=== PATIENT | male | born 1995 | race Caucasian/White ===

== ENCOUNTER 2017-09-07 07:15 | Emergency (ER) | payer OTHER ==
[~2017-09-07] VITALS: Ht 182.9 cm; Wt 84.5 kg
[2017-09-07 07:20] VITALS: TEMP 37; Ht 182.9 cm; Wt 84.5 kg
--- NOTE | 2017-09-07 08:15 | DIAGNOSTIC IMAGING REPORT ---
CHEST 2 VIEWS ROUTINE CLINICAL HISTORY: 21 years-old Male presenting with COUGH CONGESTION X 2 DAYS. TECHNIQUE: PA and lateral views of the chest were obtained. COMPARISON: None. FINDINGS: Cardiomediastinal silhouette normal. Consolidation along the left upper lobe/lingula best visualized on the lateral view. No pleural effusion or pneumothorax. Osseous structures normal. Upper abdomen normal. IMPRESSION: 1. Consolidation in the left upper lobe/lingula consistent with pneumonia. Electronically signed by: Chris Jarquin M.D. 09/07/2017 8:14 AM Dictated Date/Time: 09/07/2017 8:10 AM
[2017-09-07] MEDS ORDERED: AZITHROMYCIN 250 MG TAB PO ONE (08:30)
[2017-09-07] MEDS ORDERED: ALBUTEROL HFA 8 GM INHALER INH ONE (08:30)
[2017-09-07] MEDS ORDERED: AZIT250T5 PO (08:36)
[2017-09-07] MEDS ORDERED: HYDR5SYP11 PO (08:36)
--- NOTE | 2017-09-07 08:38 | EMERGENCY ROOM VISIT NOTE ---
ED Visit Note First contact with patient: 07:22 CHIEF COMPLAINT: Cough 3 days HISTORY OF PRESENT ILLNESS: Patient is an otherwise healthy 21-year-old white male who presents to emergency department for evaluation of a cough and shortness of breath 2-3 days. He states his symptoms started with a cough about 3 days ago. They worsened 2 days ago. He reports feeling short of breath , and having tightness in his chest with coughing. He has had subjective fever and chills, and generalized body and muscle aches for which he has been taking ibuprofen. He denies any other cold or upper respiratory symptoms including sinus and nasal congestion, sore throat. Cough is nonproductive. He denies any sick contacts. He has a mild frontal headache with coughing. He does admit to anorexia. He does not have chest pain. REVIEW OF SYSTEMS: Review of systems as per HPI. All other systems reviewed were negative. At least 6 systems reviewed. PMH: Electronic medical records are reviewed and summarized as above/below. See Problem List. SOCIAL HISTORY: Patient is a college student from the [place] area who lives in an apartment here locally with roommates. He does not smoke. PHYSICAL EXAM: Vital Signs: Reviewed Nurse's notes. MENTAL STATUS: Alert and cooperative. Nontoxic appearing. HEAD: Atraumatic, without temporal or scalp tenderness. EYES: PERRL, EOMI, no discharge or injection. EARS: Tympanic membranes intact, not inflamed, have normal contour. External canals clear. NOSE: Nares patent, turbinates moist without rhinorrhea. MOUTH: Mucous membranes moist, no lesions, tongue and gums appear normal. THROAT: No pharyngeal injection, exudates, or tonsillar hypertrophy. Airway is patent. NECK: Supple, nontender, no lymphadenopathy. HEART: Regular rate and rhythm without murmurs, ectopy, gallops, or rubs. LUNGS: Clear to auscultation and breath sounds equal, no wheezes, rales, or rhonchi. Full and equal chest expansion without accessory muscle use or retractions. SKIN: Normal. NEUROLOGICAL: Sensory and motor functions grossly intact. Normal gait. EMERGENCY DEPARTMENT COURSE: Chest x-ray was obtained and noted a left upper/ lingular pneumonia. Patient was given azithromycin 500 mg orally. He was given an albuterol inhaler with a spacer and instructed on its use. He is also given a prescription for Hycodan. He was advised to recheck with [facility], and have a repeat chest x-ray, certainly encouraged to return to the emergency department for worsening symptoms. Differential diagnoses entertained included URI, bronchitis, pneumonia, among others. Medication reconciliation: I attest that I have personally reviewed the patient' s current medication list. Blood pressure screening : Patient was found to have normal blood pressure on screening and does not require follow-up. CHEST 2 VIEWS ROUTINE CLINICAL HISTORY: 21 years-old Male presenting with COUGH CONGESTION X 2 DAYS. TECHNIQUE: PA and lateral views of the chest were obtained. COMPARISON: None. FINDINGS: Cardiomediastinal silhouette normal. Consolidation along the left upper lobe/lingula best visualized on the lateral view. No pleural effusion or pneumothorax. Osseous structures normal. Upper abdomen normal. IMPRESSION: 1. Consolidation in the left upper lobe/lingula consistent with pneumonia. Current/Historical Medications Scheduled Azithromycin (Zithromax), 250 MG PO DAILY Scheduled PRN Hydrocodone W/ Homatropine (Hycodan 5/1.5MG 5 Ml), 10 ML PO Q4H PRN for Cough Allergies Uncoded Allergies: seasonal allergy (Allergy, Unknown, Sneezing, itchy watery eyes,, 09/07/17) Pollen, Grass, Trees Vital Signs Date Time Temp Pulse Resp B/P (MAP) Pulse Ox O2 Delivery O2 Flow Rate FiO2 09/07/17 08:46 80 20 137/79 99 09/07/17 07:20 37.0 97 18 121/77 96 Room Air Medications Administered Medications (Trade) Dose Ordered Sig/Megan Route Start Time Stop Time Status Last Admin Dose Admin Azithromycin (Zithromax Tab) 500 mg NOW ONCE PO 09/07/17 08:30 09/07/17 08:31 DC 09/07/17 08:44 500 MG Albuterol (Ventolin Hfa Inhaler) 2 puffs NOW ONCE INH 09/07/17 08:30 09/07/17 08:31 DC 09/07/17 08:30 2 PUFFS Departure Information Impression Primary Impression: Pneumonia Prescriptions Hydrocodone W/ Homatropine (HYCODAN 5/1.5MG 5 ML) 1 Syp Syp 10 ML PO Q4H Y for Cough, #100 ML For Initial Treatment Prov: Christel Tse PA 09/07/17 Azithromycin (ZITHROMAX) 250 Mg Tab 250 MG PO DAILY, #4 TAB Prov: Christel Tse PA 09/07/17 Referrals No Doctor, Assigned (PCP) Patient Instructions My [facility] Additional Instructions Azithromycin(Zithromax) 250mg: Take one a day for 4 additional days. All antibiotics can cause diarrhea. If this occurs and you feel worse or it does not resolve in 1- 2 days follow up with your doctor or return to the Emergency Department as this could be signs of serious underlying problems. Any medication can cause an allergic reaction, stop the pills immediately and return to the ER for rash, hives, breathing difficulties, or swelling. Albuterol Inhaler: Take 2 puffs every 4 hours for the next 3-5 days, then as needed for cough/wheezing/shortness of breath. Ibuprofen(Motrin, Advil) may be used for fever or pain. Use 600mg every six hours as needed. Take with food. Avoid using more than 2400mg in a 24 hour period. Do not use 2400mg per day for more than three consecutive days without physician direction. Prolonged inappropriate use can lead to stomach upset or ulcers. This is available over the counter and typically comes in 200mg tablets. (AND/OR) Acetaminophen(Tylenol) may be used for fever or pain. Use 1000mg every eight hours as needed. Avoid using more than 3000mg in a 24 hour period. This is available over the counter. Hycodan cough syrup: use 10 mL every six hours only as needed for severe cough. It is best for use at night since it will cause sedation. This is a narcotic medication. Avoid alcohol, operating machinery or dangerous equipment, working on ladders or roofs, DRIVING, important decision making, or situations where being under the influence may be dangerous. It is recommended to use an [id number] stool softener such as Colace, 100mg twice daily while taking this medication to avoid constipation. Read all the package inserts or medication information paperwork provided. If you have any questions or concerns call your primary provider, pharmacist or the ER for assistance. Controlling your fever with Tylenol and Ibuprofen as above will make you feel better. Rest and drink plenty of fluids. Avoid strenuous activity until your symptoms resolve and your breathing returns to normal. Continue current medications. Return to the ER for chest pain, difficulty breathing, persistent fevers, vomiting, worsening of your condition, or as needed Follow up with S next week for recheck. Repeat chest xray in 2-3 weeks to ensure resolution of the pneumonia. Problem Qualifiers Primary Impression: Pneumonia Pneumonia type: due to unspecified organism Laterality: left Lung location : upper lobe of lung Qualified Codes: J18.1 - Lobar pneumonia, unspecified organism
[2017-09-07 08:46] VITALS: BP 137/79; PULSE 80; O2SAT 99
== END 2017-09-07 09:09 | disposition home or self-care (01) ==
LOC: C.EDB 07:16
DX: J18.9 Pneumonia, unspecified organism (principal); Z91.09 Other allergy status, other than to drugs and biological substances